=== PATIENT | female | born 1960 | race Caucasian/White ===

== ENCOUNTER 2017-01-15 12:59 | Emergency (ER) | payer BC ==
[2017-01-15 13:19] VITALS: BP 121/79
--- NOTE | 2017-01-15 13:50 | EDM.PDOC ---
ED HPI Trauma - General Chief Complaint: Upper Extremity Injury/Pain Stated Complaint: Right hand injury Time Seen by Provider: 01/15/17 13:40 Source: Reports: Patient, RN notes reviewed History Limitations: Reports: No limitations - History of Present Illness INITIAL COMMENTS - FREE TEXT/NARRATIVE: 56 year old female presents to the ED today with chief complain of right ring finger pain and inability to move her finger. She has good sensation. She denies wrist pain, elbow pain, and upper arm pain. She was vacuuming her house today and fell down 6-7 stairs. She fell backwards and flipped. She had no LOC. She has some pain to her upper back and shoulders. No midline neck pain. She has no pain with movement of her neck. No headache. No chest wall pain or abdominal pain. No nausea or vomiting. Allergies/ADRs: Allergies No Known Allergies Allergy (Verified 01/15/17 13:19) Home Medications: Ambulatory Orders . [No Known Home Meds] 01/15/17 [Confirmed 01/15/17] Social & Family History - Tobacco Use Smoking Status *Q: Never Smoker Second Hand Smoke Exposure: No - Caffeine Use Caffeine Use: Reports: Soda - Recreational Drug Use Recreational Drug Use: No Review of Systems - Review of Systems Review Of Systems: See Below Constitutional: Reports: no symptoms Eyes: Reports: no symptoms. Denies: vision change Respiratory: Reports: No Symptoms. Denies: Shortness of Breath Cardiovascular: Reports: no symptoms. Denies: chest pain GI/Abdominal: Reports: No symptoms. Denies: Abdominal pain, Nausea, Vomiting Musculoskeletal: Reports: shoulder pain, other (hand and ring finger pain on the right). Denies: neck pain Skin: Reports: no symptoms Neurological: Reports: Tingling (right arm ). Denies: Confusion, Dizziness, Headache, Difficulty Walking Trauma Exam - Physical Exam Exam: See Below Exam Limited By: No limitations General Appearance: Reports: alert, WD/WN, no apparent distress Head: Reports: atraumatic, normocephalic Eyes: bilateral eye: normal inspection, PERRL Neck: Reports: non-tender, full range of motion, normal alignment, normal inspection. Denies: painful range of motion, spinous processes tender, stiff neck, tender lateral, tender midline Respiratory Exam: Reports: no respiratory distress, lungs clear, normal breath sounds, chest non-tender Cardiovascular: Reports: normal peripheral pulses, regular rate, rhythm Back: Reports: full range of motion, normal inspection, non-tender, paraspinal tenderness (upper back ). Denies: vertebral tenderness Extremities: Reports: other (deformity to right 4th finger. She is unable to flex or extend her finger. She has good sensation to the tip of the finger. No bony point tenderness over the hand, wrist, forearm, elbow or humerus. ) Neurologic: Reports: alert, normal mood/affect, oriented x 3 Course - Vital Signs Last Recorded V/S: Last Vital Signs Temp 98.3 F 01/15/17 13:16 Pulse 83 01/15/17 13:16 Resp 18 01/15/17 13:16 BP 121/79 01/15/17 13:16 Pulse Ox 98 01/15/17 13:16 - Orders/Labs/Meds Orders: Active Orders 24 hr Category Date Time Status Fingers Fourth Digit Rt F8 [CR] Stat Exams 01/15/17 14:51 Taken Meds: Medications Discontinued Medications Generic Name Dose Route Start Last Admin Trade Name Freq PRN Reason Stop Dose Admin Bupivacaine HCl 10 ml 01/15/17 14:13 01/15/17 14:21 Sensorcaine-Mpf 0.5% INJECT 01/15/17 14:14 10 ml ONETIME ONE Administration - Re-Assessments/Exams Free Text/Narrative Re-Assessment/Exam: Initial x-rays reveal dislocation of the right 4th PIP joint. Digital block was performed and the finger was easily reduced. Post-reduction films reveal good alignment. There is also a corner fracture of the distal phalanx. Patient placed in an aluminum finger splint. She was instructed on supportive care. She is a [facility] patient and wishes to stay within the [facility] system. She was instructed to f/u with Dr. Torres in 7-10 days for recheck. Instructed on splint and fracture care. Discharge instructions as documented. Departure - Departure Time of Disposition: 15:09 Disposition: Home, Self-Care 01 Condition: good Clinical Impression: Finger dislocation Qualifiers: Encounter type: initial encounter Qualified Code(s): S63.259A - Unspecified dislocation of unspecified finger, initial encounter Fracture of phalanx of right hand, closed Qualifiers: Encounter type: initial encounter Qualified Code(s): S62.609A - Fracture of unspecified phalanx of unspecified finger, initial encounter for closed fracture Instructions: Finger or Thumb Dislocation Referrals: PCP,None [Primary Care Provider] - Dudley Torres DO [Physician] - Forms: ED Department Discharge Additional Instructions: Rest, ice and elevate Tylenol and/or Motrin for pain Follow-up with Dr. Torres in 7-10 days Wear splint at all times May remove to shower but do not bend finger until cleared by Dr. Torres - My Orders Last 24 Hours: My Active Orders 01/15/17 14:51 Fingers Fourth Digit Rt F8 [CR] Stat - Assessment/Plan Last 24 Hours: My Active Orders 01/15/17 14:51 Fingers Fourth Digit Rt F8 [CR] Stat
[2017-01-15] MEDS ORDERED: Bupivacaine 0.5% 10 ML SDV INJECT ONE (14:13)
--- NOTE | 2017-01-15 14:44 | CR ---
Right hand: Four views of the right hand were obtained. Comparison: No previous study. Dislocation identified within the PIP joint of the fourth digit. Mild joint space narrowing is scattered within the DIP joints. No definite acute fracture is appreciated. Impression: 1. Dislocated PIP joint of the fourth digit. 2. Slight degenerative change. Diagnostic code #3
--- NOTE | 2017-01-15 16:07 | CR ---
Right fourth finger: Four views of the right fourth finger were obtained. Comparison: Previous right hand study performed earlier on 01/15/17. Previous dislocation has been reduced. Small calcification noted off the base of the middle phalanx which is felt to be old. I do not see an acute fracture. Degenerative change is noted within the visualized DIP joints. Soft tissue swelling is noted. Impression: 1. Previous dislocation has been reduced. 2. Other incidental findings. Diagnostic code #2
== END 2017-01-15 15:25 | disposition home or self-care (01) ==
LOC: JD.ED 12:59
DX: S63.254A Unspecified dislocation of right ring finger, initial encounter (principal); X58.XXXA Exposure to other specified factors, initial encounter
CPT/HCPCS: 26770; 64450; 73130-26-RT; 73130-RT; 73140-26-F8; 73140-F8; 99283; 99284-25